=== PATIENT | female | born 1930 | race Two or more races ===

== ENCOUNTER → 2018-01-18 | Outpatient (CLI) | payer MEDICARE, OTHER ==
[~2018-01-18] MED LIST: APIX2.5T PO; LEVO500 PO; LISI-660 PO; METF500T4 PO; METO25 PO; SIMV-260 PO
== END | disposition home or self-care (01) ==
LOC: RADPV 12:03
PROVIDERS: ATTEND Internal Medicine
DX: R31.9 Hematuria, unspecified (principal); N39.0 Urinary tract infection, site not specified
CPT/HCPCS: 76770

== ENCOUNTER → 2018-01-28 | Outpatient (CLI) | payer MEDICARE, OTHER | END | disposition home or self-care (01) | LOC: RADMN 09:52 | PROVIDERS: ATTEND Internal Medicine | DX: M48.04 Spinal stenosis, thoracic region (principal); M51.84 Other intervertebral disc disorders, thoracic region; M43.16 Spondylolisthesis, lumbar region; M51.26 Other intervertebral disc displacement, lumbar region; M48.061 Spinal stenosis, lumbar region without neurogenic claudication; Z91.81 History of falling | CPT/HCPCS: 72128; 72131 ==